=== PATIENT | male | born 1950 | race Caucasian/White ===

== ENCOUNTER 2020-03-07 14:21 | Outpatient (CLI) | payer MEDICARE, OTHER, SELFPAY ==
--- NOTE | 2020-03-07 15:00 | USCV_ITS ---
Pepe Morrow Age: 69 Gender: M : 1950 Exam Date: 03/07/2020 14:42 Ordering Phys: Kendrick Gabriel M.D ([email or web address]) Technologist: Von Addison [place] [facility] [facility] [place]ication: PROS AO COARCTATION REPAIR BP: 150 / 86 HR: 57 Rhythm: Sinus Technical Quality: Good MEASUREMENTS (Male / Female) Normal Values 2D ECHO LV Diastolic Diameter PLAX 3.5 cm 4.2 - 5.9 / 3.9 - 5.3 cm LV Systolic Diameter PLAX 2.1 cm IVS Diastolic Thickness 2.1 cm 0.6 - 1.0 / 0.6 - 0.9 cm IVS Systolic Thickness 1.6 cm LVPW Diastolic Thickness 1.4 cm 0.6 - 1.0 / 0.6 - 0.9 cm LVPW Systolic Thickness 1.7 cm LVOT Diameter 2.0 cm LV Ejection Fraction 2D Teich 71.7 % LA Diameter 3.1 cm LA Width 3.9 cm LA Height 4.4 cm RA Width 3.9 cm RA Height 3.7 cm Aorta at Sinotubular Diameter 1.0 cm M-MODE LV Diastolic Diameter MM 6.0 cm 4.2 - 5.9 / 3.9 - 5.3 cm LV Systolic Diameter MM 3.9 cm LV Ejection Fraction MM Teich 64.2 % IVS Diastolic Thickness MM 1.4 cm 0.6 - 1.0 / 0.6 - 0.9 cm IVS Systolic Thickness MM 1.7 cm LVPW Diastolic Thickness MM 1.4 cm 0.6 - 1.0 / 0.6 - 0.9 cm LVPW Systolic Thickness MM 2.0 cm RV Diastolic Diameter MM 1.4 cm MV E Point Septal Separation 1.1 cm DOPPLER AV Peak Velocity 225.0 cm/s LVOT Peak Velocity 103.0 cm/s AV Area Cont Eq vti 1.8 cm squared AV Area Cont Eq pk 1.5 cm squared MV Area PHT 5.0 cm squared Mitral E to A Ratio 0.7 MV E' Velocity 40.5 cm/s Mitral E to MV E' Ratio 10.0 Mitral E to LV E' Lateral Ratio 7.6 Mitral E to LV E' Septal Ratio 14.7 TR Peak Velocity 209.3 cm/s TR Peak Gradient 17.5 mmHg TV Peak E Velocity 93.0 cm/s Right Atrial Pressure 3.0 mmHg Pulmonary Artery Systolic Pressu 20.5 mmHg PV Peak Velocity 85.0 cm/s FINDINGS Left Ventricle Normal left ventricular size and systolic function. LVEF is 60 to 65%. No regional wall motion abnormalities are seen. Moderate left ventricular hypertrophy is noted. Grade 1 diastolic dysfunction is present. Right Ventricle The right ventricle is normal in size and function. Right Atrium The right atrium is normal in size. Left Atrium The left atrium is normal in size. Mitral Valve Structurally normal mitral valve without significant stenosis or prolapse. There is no mitral regurgitation. Aortic Valve Aortic valve is not well-visualized. Likely presence of mechanical valve. There is no aortic regurgitation. Peak gradient across the aortic valve of 20.2mmHg with mean gradient of 10.5mmHg. Peak gradient of 2.25m/s. DVI is normal with a value of 0.57. Tricuspid Valve Structurally normal tricuspid valve without significant stenosis. Mild tricuspid regurgitation is noted. RVSP is 20-25 mmHg. Pulmonic Valve Structurally normal pulmonic valve without significant stenosis. There is no pulmonic regurgitation. Pericardium Normal pericardium without effusion. Aorta Normal ascending aorta dimension. No significant stenosis is noted in the descending aorta with peak gradient of 5.8mmHg (patient with prior coarctation repair) CONCLUSIONS LV systolic function is normal with a EF of 60 to 65%. Grade 1 diastolic dysfunction is present. Likely mechanical aortic valve is noted. No significant stenosis or regurgitation is noted. DVI is normal with a value of 0.57. No significant stenosis noted in the descending aorta with peak gradient of 5.8 mmHg.(Patient with history of prior coarctation repair) Compared to prior study from 02/04/2019, no significant changes are noted. Kendrick Gabriel MD (Electronically Signed) Final Date: 11 March 2020 17:59 S
== END 2020-03-07 14:22 | disposition home or self-care (01) ==
LOC: RAD 14:26
PROVIDERS: PCP Internal Medicine; Visit Provider Internal Medicine
DX: I25.10 Atherosclerotic heart disease of native coronary artery without angina pectoris (principal); I51.81 Takotsubo syndrome
CPT/HCPCS: 93306

== ENCOUNTER 2021-07-18 09:50 | Emergency (ER) | payer MEDICARE, OTHER, SELFPAY ==
[2021-07-18 09:57] VITALS: BP 223/118; PULSE 59; RESP 15; TEMP 36.7; O2SAT 98; BMI 25.8
--- NOTE | 2021-07-18 10:15 | ED_ITS ---
HPI - General Adult General: Chief complaint: General Medical Stated complaint: Bloody nose and is on blood thinners Time Seen by Provider: 07/18/21 10:15 Source: patient Mode of arrival: ambulatory Limitations: no limitations History of Present Illness: 70-year-old male presents to the emergency room w ith epistaxis. Patient is on Coumadin for mechanical aortic valve. He last had his INR checked 2 months ago. He states that with epistaxis began last night around 10 AM is continued through the night. He states he has been swallowing the blood. He has a small amount of tissue stuffed into the right nare. He is on carvedilol and took his medication his blood pressure is significantly elevated but he is bradycardic. Denies any other symptoms no chest pain or shortness of breath. Onset (ago): hour(s) Relieving factors: none Exacerbating factors: none Associated symptoms: Deny chest pain, confusion, cough, diaphoresis, decreased appetite, dyspnea, fevers/chills, headache(s), malaise, nausea, rash, palpitations, seizures, short of breath, syncope, vomiting or weakness Treatments prior to arrival: none Review of Systems Const: Denies: malaise or diaphoresis Card: Denies: chest pain, palpitations or syncope Resp: Denies: dyspnea GI: Denies: nausea or vomiting Skin/Breast: Denies: rash Neuro: Denies: headache(s) or confusion PFS ED PFSH: Medical History History of hypertension Hx of aortic valve stenosis Hx of cardiac murmur Hx of carpal tunnel syndrome Hx of hyperlipidemia Surgical History History of carpal tunnel release of both wrists History of tonsillectomy and adenoidectomy Hx of aortic valve replacement Hx of spinal surgery Hx of vasectomy Family History Denies family history of Diabetes CAD (coronary artery disease) Cancer Hypertension Social History Smoking and tobacco status: never smoked Alcohol intake: current Alcohol intake frequency: 0-2 Drinks per Day Alcohol type: beer Lives independently: Yes Household members: spouse Marital status: Physical Exam Const: GENERAL APPEARANCE: cooperative and comfortable ORIENTATI ON/CONSCIOUSNESS: Yes awake, Yes oriented to person, Yes oriented to place and Yes oriented to time HENMT: COMMON NORMALS: normocephalic, atraumatic and hearing grossly normal bilaterally HEAD & SCALP: normocephalic and atraumatic NOSE: Other nasal findings present (No active bleeding from the right nare at the time of exam) Neck/C-Spine: COMMON NORMALS: no JVD Resp: COMMON NORMALS: normal respiratory effort, No retractions, No use of accessory muscles and clear to auscultation bilaterally AUSCULTATION: clear to auscultation bilaterally Cardio: COMMON NORMALS: no JVD, regular rate, regular rhythm and No murmurs present (Cardio) RATE: regular rate RHYTHM: regular rhythm GI: COMMON NORMALS: Soft to palpation and No hepatosplenomegaly present AUSCULTATION: Yes normoactive bowel sounds PALPATION: Yes Soft to palpation, No Tenderness to palpation present (GI), No Guarding due to palpation present (GI) and Yes No hepatosplenomegaly present Extremity: COMMON NORMALS: normal to inspection, capillary refill normal, no clubbing, cyanosis or edema, no calf tenderness and no pedal edema Neuro: SENSORIUM/ORIENTATION: Yes oriented to person, Yes oriented to place and Yes oriented to time Skin: COMMON NORMALS: no rashes or lesions noted GENERAL SKIN EXAM: no rashes or lesions noted Course Vital Signs: Vital signs: Vital Signs Temperature 98.0 F 07/18/21 09:57 Pulse Rate 54 L 07/18/21 10:31 Respiratory Rate 18 07/18/21 10:31 Blood Pressure 192/108 07/18/21 10:31 Pulse Oximetry 96 07/18/21 10:31 [facility] - General Adult Medical Decision Making Epistaxis resolved spontaneously we did give him 2 sprays in each nostril of oxymetazoline. He has not had any further bleeding. His hemoglobin is stable discharge him home and repeat him on Augmentin twice daily for 5 days mupirocin nasal swabs twice daily add amlodipine lisinopril for his blood pressure. Case management to set up follow-up with ENT. Medical Records I reviewed the patient's medical records. Lab Data I reviewed the patient's lab results. : 07/18/21 10:30 Laboratory Results WBC 5.4 10^3/uL (4.0-10.0) 07/18/21 10:30 RBC 5.13 10^6/uL (4.1-5.3) 07/18/21 10:30 Hgb 16.7 g/dL (11.7-16.6) H 07/18/21 10:30 Hct 49.7 % (42.0-52.0) 07/18/21 10:30 MCV 96.9 fl (80-94) H 07/18/21 10:30 MCH 32.6 pg (28.0-34.0) 07/18/21 10:30 MCHC 33.6 g/dL (30.0-36.0) 07/18/21 10:30 RDW 12.6 % (12.1-15.1) 07/18/21 10:30 Plt Count 142 10^3/cmm (130-400) 07/18/21 10:30 MPV 10.8 fL (7.4-10.4) H 07/18/21 10:30 Neut % (Auto) 57.9 % 07/18/21 10:30 Lymph % (Auto) 25.0 % 07/18/21 10:30 [place] % (Auto) 8.1 % 07/18/21 10:30 Eos % (Auto) 7.9 % 07/18/21 10:30 Baso % (Auto) 0.9 % 07/18/21 10:30 Neut # (Auto) 3.13 10^3/uL (1.8-7.7) 07/18/21 10:30 Lymph # (Auto) 1.4 10^3/uL (0.8-4.8) 07/18/21 10:30 [place] # (Auto) 0.4 10^3/uL (0.2-0.9) 07/18/21 10:30 Eos # (Auto) 0.4 10^3/uL (0.0-0.8) 07/18/21 10:30 Baso # (Auto) 0.1 10^3/uL (0.0-0.1) 07/18/21 10:30 Nucleated RBC % (auto) 0 % 07/18/21 10:30 Nucleated RBCs # 0.0 /100WBC 07/18/21 10:30 PT Cancelled 07/18/21 12:00 INR Cancelled 07/18/21 12:00 Discharge Plan Discharge Patient Disposition: Home Clinical Impression: Epistaxis, Hypertension, H/O mechanical aortic valve replacement Condition: Stable Prescriptions: New amlodipine 5 mg tablet 5 mg PO DAILY Qty: 30 0RF lisinopril 10 mg tablet 10 mg PO DAILY Qty: 30 0RF Augmentin 875-125 mg tablet 1 tab PO BID Qty: 10 0RF mupirocin 2 % ointment 1 applic topical BID Qty: 22 0RF Rx Instructions: apply to nares BID No Action lisinopril 40 mg tablet 40 mg PO DAILY 0RF aspirin [Adult Aspirin Regimen] 81 mg tablet,delayed release (DR/EC) 81 mg PO DAILY 0RF warfarin 1 mg tablet 1 mg PO DAILY 0RF Rx Instructions: Take as directed per INR results carvedilol [Coreg] 6.25 mg tablet 6.25 mg PO BID Qty: 60 6RF Rx Instructions: must administer with a meal/food hydrochlorothiazide 25 mg tablet 25 mg PO DAILY Qty: 90 3RF Discharge Orders: Discharge ED (Routine); Ordered 07/18/21 Ordered By: Blair Bolanos Referrals: Sukh Mendez DO [Primary Care Provider] - Discharge Diet: Usual diet Discharge Activity: Limit activity as instructed Patient Instructions: Opioid Safety Activity Restrictions/Additional Instructions: Continue previously prescribed blood pressure medications. Oral antibiotic x5 days nasal saline spray 2-3 times a day mupirocin in the nares twice a day. Case management will call make arrangements for you to see ENT Coding Level of Care Code ED Senior Ios Software Engineer for Isaac Fwd Exam Comprehensive
[2021-07-18 10:31] VITALS: BP 192/108; PULSE 54; RESP 18; O2SAT 96
[2021-07-18 10:46] LABS: Basophils # 0.1 10^3/uL (0.0-0.1); Basophils % 0.9 %; Eosinophils # 0.4 10^3/uL (0.0-0.8); Eosinophils % 7.9 %; Hematocrit 49.7 % (42.0-52.0); Hemoglobin 16.7 g/dL (11.7-16.6); Lymphocytes # 1.4 10^3/uL (0.8-4.8); Mean Corpuscular HGB Conc 33.6 g/dL (30.0-36.0); Mean Corpuscular Hemoglobin 32.6 pg (28.0-34.0); Mean Corpuscular Volume 96.9 fl (80-94); Mean Platelet Volume 10.8 fL (7.4-10.4); Monocytes # 0.4 10^3/uL (0.2-0.9); Monocytes % 8.1 %; Neutrophils # 3.13 10^3/uL (1.8-7.7); Neutrophils % 57.9 %; Nucleated Red Blood Cells % 0 %; Platelet Count 142 10^3/cmm (130-400); Red Blood Count 5.13 10^6/uL (4.1-5.3); Red Cell Distribution Width 12.6 % (12.1-15.1); White Blood Count 5.4 10^3/uL (4.0-10.0)
[2021-07-18] MEDS: oxymetazoline 0.05% Nasal Spray 15 mL 2 SPRAY NOSTRIL-B (11:14)
[2021-07-18] MEDS: amlodipine 10 mg Tablet PO (11:16)
[2021-07-18] MEDS: saline nasal spray 44mL Btl 1 SPRAY NASAL (11:16)
[2021-07-18] MEDS: hyDRALAzine 20 mg/mL INJ 1 mL IVP (11:25)
--- NOTE | 2021-07-18 12:17 | PC.NURSE ---
Reviewed all dc instr.including new meds, FU instructions & s/s to report. Pt ambulated from room. Spouse received all instructions.
--- NOTE | 2021-07-19 13:10 | DCPLANNER ---
Addendum entered by Kimber Hargrove 08/07/21 08:00: Patient had an appointment scheduled with ENT - appointment was cancelled. Original Note: resident services manager had message to schedule a follow up appointment for patient with ENT. resident services manager emailed patients information to Julianna Good and Hannah at [facility] General Surgery / ENT clinic. Patients information will be printed and reviewed. Clinic will call patient with appointment information.
== END 2021-07-18 12:15 | disposition home or self-care (01) ==
PROVIDERS: Emergency Provider Family Medicine; PCP Internal Medicine
DX: R04.0 Epistaxis (principal); I10 Essential (primary) hypertension; Z95.2 Presence of prosthetic heart valve; Z79.01 Long term (current) use of anticoagulants; Z79.82 Long term (current) use of aspirin; E78.5 Hyperlipidemia, unspecified
CPT/HCPCS: 36415; 85025; 96374; 99283; J0360

== ENCOUNTER → 2021-08-31 09:54 | Outpatient (BNVA) | payer MEDICARE, OTHER, SELFPAY | PROVIDERS: PCP Internal Medicine; Visit Provider Internal Medicine | DX: I25.10 Atherosclerotic heart disease of native coronary artery without angina pectoris (principal); Z87.74 Personal history of (corrected) congenital malformations of heart and circulatory system; I10 Essential (primary) hypertension; Q25.1 Coarctation of aorta; Z95.2 Presence of prosthetic heart valve; Z79.01 Long term (current) use of anticoagulants | CPT/HCPCS: 99214 ==

== ENCOUNTER 2021-12-20 07:32 | Outpatient (CLI) | payer MEDICARE, OTHER, SELFPAY ==
--- NOTE | 2021-12-20 07:45 | USCV_ITS ---
Pepe Morrow Age: 71 Gender: M : 1950 Exam Date: 12/20/2021 07:41 Ordering Phys: Kendrick Gabriel M.D ([email or web address]) Technologist: Von Addison Exam Location: [facility] [place] Indication: st wolf a prostetic valve hx of corarctation of aorta repair BP: 130 / 80 HR: 67 Rhythm: Sinus Technical Quality: MEASUREMENTS (Male / Female) Normal Values 2D ECHO LV Diastolic Diameter PLAX 5.2 cm 4.2 - 5.9 / 3.9 - 5.3 cm LV Systolic Diameter PLAX 2.8 cm IVS Diastolic Thickness 1.1 cm 0.6 - 1.0 / 0.6 - 0.9 cm IVS Systolic Thickness 1.5 cm LVPW Diastolic Thickness 1.3 cm 0.6 - 1.0 / 0.6 - 0.9 cm LVPW Systolic Thickness 1.7 cm LVOT Diameter 2.0 cm LV Ejection Fraction 2D Teich 78.0 % LA Diameter 4.7 cm Aorta at Sinotubular Diameter 2.9 cm IVC Diameter 1.9 cm M-MODE LV Diastolic Diameter MM 6.0 cm 4.2 - 5.9 / 3.9 - 5.3 cm LV Systolic Diameter MM 3.8 cm LV Ejection Fraction MM Teich 64.7 % IVS Diastolic Thickness MM 1.3 cm 0.6 - 1.0 / 0.6 - 0.9 cm IVS Systolic Thickness MM 1.7 cm LVPW Diastolic Thickness MM 1.1 cm 0.6 - 1.0 / 0.6 - 0.9 cm LVPW Systolic Thickness MM 1.8 cm RV Diastolic Diameter MM 1.7 cm MV E Point Septal Separation 1.4 cm DOPPLER AV Peak Velocity 248.0 cm/s LVOT Peak Velocity 93.0 cm/s AV Area Cont Eq vti 1.4 cm squared AV Area Cont Eq pk 1.2 cm squared MV Area PHT 5.0 cm squared Mitral E to A Ratio 0.9 MV E' Velocity 49.0 cm/s Mitral E to MV E' Ratio 10.4 Mitral E to LV E' Lateral Ratio 8.0 Mitral E to LV E' Septal Ratio 14.9 TR Peak Velocity 288.3 cm/s TR Peak Gradient 33.2 mmHg TV Peak E Velocity 113.0 cm/s Right Atrial Pressure 3.0 mmHg Pulmonary Artery Systolic Pressu 36.2 mmHg PV Peak Velocity 93.0 cm/s FINDINGS Left Ventricle Normal left ventricular size. LV systolic function is normal with EF of 55-60%. No regional wall motion abnormality seen. Moderate left ventricular hypertrophy is seen. Right Ventricle The right ventricle is normal in size and function. Right Atrium The right atrium is normal in size. Left Atrium The left atrium is normal in size. Mitral Valve Structurally normal mitral valve without significant stenosis or prolapse. There is mild mitral regurgitation. Aortic Valve Possibly mechanical aortic valve. Mild aortic stenosis. Mean gradient across aortic valve is 11 mmHg and aortic valve area is 1.36 cm squared. Mild aortic regurgitation Tricuspid Valve Mild tricuspid regurgitation. Pulmonary artery systolic pressure is normal Pulmonic Valve Not well-visualized Pericardium Normal pericardium without effusion. Aorta Normal ascending aorta dimension. No significant recoarctation IVC CONCLUSIONS LV systolic function is normal with EF 55 to 60%. Moderate left ventricular hypertrophy is seen. Mild mitral regurgitation noted. Possibly mechanical aortic valve. Mild aortic stenosis seen. Mild aortic regurgitation. Mild tricuspid regurgitation. Compared to prior echocardiogram from 2019, no significant changes are seen. Kendrick Gabriel MD (Electronically Signed) Final Date: 02 January 2022 18:56 S
== END 2021-12-20 07:33 | disposition home or self-care (01) ==
PROVIDERS: PCP Internal Medicine; Visit Provider Internal Medicine
DX: Q25.1 Coarctation of aorta (principal); I08.3 Combined rheumatic disorders of mitral, aortic and tricuspid valves
CPT/HCPCS: 93306

== ENCOUNTER → 2022-03-08 10:31 | Outpatient (BNVA) | payer MEDICARE, OTHER, SELFPAY | PROVIDERS: PCP Internal Medicine; Visit Provider Internal Medicine | DX: I25.10 Atherosclerotic heart disease of native coronary artery without angina pectoris (principal); Z87.74 Personal history of (corrected) congenital malformations of heart and circulatory system; I10 Essential (primary) hypertension; Z95.2 Presence of prosthetic heart valve | CPT/HCPCS: 99213; 99214 ==

== ENCOUNTER 2022-08-17 20:20 | Emergency (ER) | payer MEDICARE, OTHER, SELFPAY ==
[2022-08-17] VITALS (12 sets, daily range): BP systolic 121–201; BP diastolic 75–94; PULSE 56–67; RESP 13–22; TEMP 36.7; O2SAT 94–100; BMI 25.8
--- NOTE | 2022-08-17 20:25 | ECG_ITS ---
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: : 1950 Requested By: Jacob Avendaño Order Number: [id number] Reading MD: OSMAR MONTERO Measurements Intervals [place] Rate: 61 P: 55 FL: 193 QRS: -76 QRSD: 186 T: 29 QT: 469 QTc: 474 Interpretive Statements SINUS RHYTHM POSSIBLE LEFT ATRIAL ENLARGEMENT [-0.1mV P-WAVE IN V1/V2] RIGHT BUNDLE BRANCH BLOCK [120+ ms QRS DURATION, UPRIGHT V1, 40+ ms S IN I/aVL/V4/V5/V6] LEFT ANTERIOR FASCICULAR BLOCK [QRS AXIS <= -45, QR IN I, RS IN II] LEFT VENTRICULAR HYPERTROPHY AND ST-T CHANGE [VOLTAGE CRITERIA PLUS ST/T ABNORMALITY] No previous ECG available for comparison Electronically Signed On 08-19-2022 3:07:45 CDT by OSMAR MONTERO [id number]
--- NOTE | 2022-08-17 21:06 | XRR_ITS ---
PROCEDURE INFORMATION: Exam: XR Chest Exam date and time: 08/17/2022 9:09 PM Age: 71 years old Clinical indication: Pain; Left-sided; Prior surgery; Surgery type: Aorta; Additional info: Cp TECHNIQUE: Imaging protocol: Radiologic exam of the chest. Views: 1 view. COMPARISON: No relevant prior studies available. FINDINGS: Tubes, catheters and devices: There are sternal wires consistent with previous sternotomy incision. Lungs: There is no pulmonary venous congestion. Pleural spaces: Unremarkable. No pleural effusion. No pneumothorax. Heart/Mediastinum: There is a prosthetic aortic valve. Heart is within normal limits of size. Vasculature: There is ectasia of the aortic arch and a tortuous descending thoracic aorta. Bones/joints: Unremarkable. XR/XR chest 1V portable [id number] IMPRESSION: 1. No acute infiltrate 2. Tortuous and ectatic aorta.
[2022-08-17] MEDS: ondansetron 2 mg/ML SDV 2 mL 4 MG IVP (21:22)
[2022-08-17] MEDS: fentaNYL 50 mcg/mL INJ 2mL 25 MCG IVP (21:22)
[2022-08-17 21:47] LABS: Basophils # 0.1 10^3/uL (0.0-0.1); Basophils % 0.9 %; Eosinophils # 0.4 10^3/uL (0.0-0.8); Eosinophils % 7.6 %; Hematocrit 46.1 % (42.0-52.0); Hemoglobin 15.3 g/dL (11.7-16.6); Lymphocytes # 1.1 10^3/uL (0.8-4.8); Lymphocytes % 19.7 %; Mean Corpuscular HGB Conc 33.2 g/dL (30.0-36.0); Mean Corpuscular Hemoglobin 31.5 pg (28.0-34.0); Mean Corpuscular Volume 95.1 fl (80-94); Mean Platelet Volume 10.3 fL (7.4-10.4); Monocytes # 0.6 10^3/uL (0.2-0.9); Monocytes % 11.4 %; Neutrophils % 60.4 %; Nucleated Red Blood Cells % 0 %; Platelet Count 140 10^3/cmm (130-400); Red Blood Count 4.85 10^6/uL (4.1-5.3); Red Cell Distribution Width 12.4 % (12.1-15.1); White Blood Count 5.6 10^3/uL (4.0-10.0)
--- NOTE | 2022-08-17 21:48 | ED_ITS ---
HPI - Chest Pain General: Chief Complaint: Chest Pain Stated Complaint: left side pain / left arm pain Time Seen by Provider: 08/17/22 20:48 History of Present Illness: 71-year-old male with a history of coarctation of the aorta repaired with an artificial valve placement in his teens. No coronary disease history. He presents with left shoulder, left-sided chest discomfort that started prior to arrival. He was at rest when it started. He has not had pain like this before. He has had left shoulder pain that comes and goes, but believes this pain is somewhat different. He is mildly short of breath. He does not hurt worse to take a deep breath in. No long car trips. He is chronically anticoagulated for his valve. No leg swelling MD complaint: chest pain and other Pertinent past history: other Onset (ago): hour(s) Timing of current episode: constant Prior episodes: No Onset: during rest Pain location: left chest Pain radiation: left arm Severity: moderate Quality: aching Relieving factors: nothing Exacerbating factors: nothing Associated symptoms: Deny abdominal pain, dyspnea, fever(s), nausea, palpit ations or vomiting Review of Systems Const: Denies: fever(s) ENMT: Denies: throat pain Card: Denies: palpitations Resp: Denies: dyspnea GI: Denies: abdominal pain, nausea or vomiting : Denies: flank pain Musc: Denies: neck pain Skin/Breast: Denies: rash Neuro: Denies: headache(s) PFSH ED PFSH: Medical History History of hypertension Hx of aortic valve stenosis Hx of cardiac murmur Hx of carpal tunnel syndrome Hx of hyperlipidemia Surgical History History of carpal tunnel release of both wrists History of tonsillectomy and adenoidectomy Hx of aortic valve replacement Hx of spinal surgery Hx of vasectomy Family History Denies family history of Diabetes CAD (coronary artery disease) Cancer Hypertension Social History Smoking and tobacco status: never smoked Alcohol intake: current Alcohol intake frequency: 0-2 Drinks per Day Alcohol t ype: beer Lives independently: Yes Household members: spouse Marital status: Physical Exam Const: COMMON NORMALS: no acute distress GENERAL APPEARANCE: cooperative; not ill appearing and not frail appearing HENMT: COMMON NORMALS: normocephalic, atraumatic and Normal external nose present HEAD & SCALP: normocephalic and atraumatic FACE & SINUS: normal facial exam and face symmetric NOSE: Normal external nose present Eye: COMMON NORMALS: Equal, round and reactive pupils present and EOMs intact bilaterally PUPIL: Yes Equal, round and reactive pupils present Neck/C-Spine: GENERAL: Yes trachea midline Chest: CHEST: Yes Symmetrical chest wall rise Resp: COMMON NORMALS: normal respiratory effort, No retractions, No use of accessory muscles and clear to auscultation bilaterally AUSCULTATION: clear to auscultation bilaterally Cardio: COMMON NORMALS: regular rate and regular rhythm RATE: regular rate RHYTHM: regular rhythm HEART SOUNDS: Clicking heart sound present GI: COMMON NORMALS: Normal to inspection, nondistended, normoactive bowel sounds present Extremity: COMMON NORMALS: no pedal edema Neuro: DEVONTE COMA SCALE: document GCS findings [place] coma scale eye opening: Spontaneous [place] coma scale verbal response: Orientated [place] coma scale motor response: Obey commands [place] coma scale total score: 15 SENSORY EXAM: Yes extremities (intact) Psych: COMMON NORMALS: speech normal SPEECH: Yes normal speech Skin: COMMON NORMALS: no rashes or lesions noted GENERAL SKIN EXAM: no rashes or lesions noted Course Vital Signs: Vital signs: Vital Signs Temperature 98.0 F 08/17/22 20:34 Pulse Rate 80 08/18/22 00:24 Respiratory Rate 18 08/18/22 00:24 Blood Pressure 143/81 08/18/22 00:24 Pulse Oximetry 98 08/18/22 00:24 Oxygen Delivery Me thod 08/17/22 21:23 [facility] - Chest Pain Medical Decision Making Patient with atypical presentation of chest discomfort. Pain is to his left shoulder, left axilla and down his left arm. He was hypertensive on arrival, but vitals have stabilized. He does not have a coronary disease history. He does have a history of valvular repair. Chest x-ray is negative. The aorta is ectatic and tortuous on appearance, but this is stable from a chest x-ray from 2011. His CBC is normal. He is fully anticoagulated given his valve with a INR of 3.59. His delta troponin is negative. EKG shows a sinus rhythm with right bundle branch and left anterior fascicular blocks. No acute ST wave changes. His pain is improved. He has walked in the ER without increase in pain. He was offered CTA of the chest given his history of chest surgery and hypertension to rule out unlikely aortic dissection, but the patient adamantly declined. He will be allowed discharge. Lab Data 08/17/22 21:30 08/17/22 21: Radiology Impressions Chest X-Ray 08/17/22 21:06 IMPRESSION: 1. No acute infiltrate 2. Tortuous and ectatic aorta. Laboratory Results WBC 5.6 10^3/uL (4.0-10.0) 08/17/22 21: RBC 4.85 10^6/uL (4.1-5.3) 08/17/22: Hgb 15.3 g/dL (11.7-16.6) 08/17/22: Hct 46.1 % (42.0-52.0) 08/17/22: MCV 95.1 fl (80-94) H 08/17/22: MCH 31.5 pg (28.0-34.0) 08/17/22 21: MCHC 33.2 g/dL (30.0-36.0) 08/17/22 21: RDW 12.4 % (12.1-15.1) 08/17/22: Plt Count 140 10^3/cmm (130-400) 08/17/22 21: MPV 10.3 fL (7.4-10.4) 08/17/22 21: Neut % (Auto) 60.4 % 08/17/22: Lymph % (Auto) 19.7 % 08/17/22: [place] % (Auto) 11.4 % 08/17/22 21: Eos % (Auto) 7.6 % 08/17/22: Baso % (Auto) 0.9 % 08/17/22: Neut # (Auto) 3.40 10^3/uL (1.8-7.7) 08/17/22 21:30 Lymph # (Auto) 1.1 10^3/uL (0.8-4.8) 08/17/22 21:30 [place] # (Auto) 0.6 10^3/uL (0.2-0.9) 08/17/22 21:30 Eos # (Auto) 0.4 10^3/uL (0.0-0.8) 08/17/22 21: Baso # (Auto) 0.1 10^3/uL (0.0-0.1) 08/17/22 21: Nucleated RBC % (auto) 0 % 08/17/22 21: Nucleated RBCs # 0.0 /100WBC 08/17/22 21: PT 37.20 SECONDS (12.1-14.9) H 08/17/22 21: INR 3.59 (0.8-1.2) H 08/17/22 21:30 Sodium 133 mmol/L (136-145) L 08/17/22: Potassium 4.0 mmol/L (3.5-5.1) 08/17/22 21: Chloride 93 mmol/L (98-107) L 08/17/22: Carbon Dioxide 30 mmol/L (22-29) H 08/17/22: Anion Gap 14.0 (5-19) 08/17/22 21:30 BUN 9 mg/dL (8-23) 08/17/22 21: Creatinine 0.7 mg/dL (0.7-1.2) 08/17/22: GFR Calculation Not Reportable 08/17/22: Glucose 96 mg/dL (65-115) 08/17/22 21: Calculated Osmolality 275 mOsm/kg (285-295) L 08/17/22: Calcium 9.6 mg/dL (8.5-10.5) 08/17/22: Total Bilirubin 1.3 mg/dL (0.15-1.2) H 08/17/22 21:30 AST 32 U/L (0-40) 08/17/22 21: ALT 24 U/L (0-41) 08/17/22 21: Alkaline Phosphatase 63 U/L (40-130) 08/17/22 21:30 Troponin T Baseline 14 ng/L (0-15) 08/17/22 21:30 Troponin T 120 Minute 14.27 ng/L (0-15) 08/17/22 23:25 Delta Troponin T 0.27 ABS# (0-10) 08/17/22 23:25 NT-Pro-B Natriuret Pep 183 pg/mL (0-125) H 08/17/22 21:30 Total Protein 7.0 g/dL (6.6-8.7) 08/17/22 21:30 Albumin 4.4 g/dL (3.5-5.2) 08/17/22 21:30 Globulin 2.6 g/dL (1.3-4.6) 08/17/22 21:30 Discharge Plan Discharge Patient Disposition: Home Clinical Impression: Atypical chest pain Condition: Stable Prescriptions: No Action lisinopril 40 mg tablet 40 mg PO DAILY aspirin [Adult Aspirin Regimen] 81 mg tablet,delayed release (DR/EC) 81 mg PO DAILY warfarin 1 mg tablet 1 mg PO DAILY Rx Instructions: Take as directed per INR results carvedilol [Coreg] 6.25 mg tablet 6.25 mg PO BID Qty: 90 3RF Rx Instructions: must administer with a meal/food hydrochlorothiazide 25 mg tablet 25 mg PO DAILY Qty: 90 3RF mupirocin 2 % ointment 1 applic topical BID Qty: 22 0RF Rx Instructions: apply to nares BID Discharge Orders: Discharge ED (Routine); Ordered 08/18/22 Ordered By: Fei Harrison Referrals: Sukh Mendez DO [Primary Care Provider] - 1-3 days Patient Instructions: Chest Pain (ED) Activity Restrictions/Additional Instructions: Return for worsening pain, development of shortness of breath, fever, cough, any other concerning symptoms. See your doctor this week. Watch your blood pressure closely. Coding Level of Care Code ED Digital Marketer for Isaac Mason
[2022-08-17 21:59] LABS: INR 3.59 (0.8-1.2)
[2022-08-17 22:07] LABS: Troponin(5th) Baseline 14 ng/L (0-15)
[2022-08-17 22:15] LABS: Alanine Aminotransferase 24 U/L (0-41); Albumin Level 4.4 g/dL (3.5-5.2); Alkaline Phosphatase 63 U/L (40-130); Aspartate Amino Transferase 32 U/L (0-40); Blood Urea Nitrogen 9 mg/dL (8-23); Calcium 9.6 mg/dL (8.5-10.5); Carbon Dioxide 30 mmol/L (22-29); Chloride 93 mmol/L (98-107); Globulin 2.6 g/dL (1.3-4.6); Glucose 96 mg/dL (65-115); NT Pro B Type Natriuretic Pept 183 pg/mL (0-125); Osmolality Calculated 275 mOsm/kg (285-295); Sodium 133 mmol/L (136-145); Total Bilirubin 1.3 mg/dL (0.15-1.2)
[2022-08-17] MEDS: nitroglycerin 0.4 mg sublingual Tablet SUBLINGUAL (22:33)
[2022-08-17] MEDS: nitroglycerin 1 gm/inch oint Pkt 1 INCH TOPICAL (22:33)
[2022-08-17 23:46] LABS: Troponin 5 2HR 14.27 ng/L (0-15)
[2022-08-18] VITALS: PULSE 54; RESP 13; O2SAT 98
[2022-08-18 00:03] LABS: Troponin 5 2HR Delta 0.27 ABS# (0-10)
[2022-08-18 00:15] VITALS: BP 143/81
[2022-08-18 00:24] VITALS: BP 143/81; PULSE 80; RESP 18; O2SAT 98
[2022-08-18] MEDS: ketorolac 30 mg/mL INJ 15 MG IVP (00:27)
== END 2022-08-18 00:27 | disposition home or self-care (01) ==
PROVIDERS: Emergency Provider Emergency Medicine; PCP Internal Medicine
DX: R07.89 Other chest pain (principal); I10 Essential (primary) hypertension; I45.2 Bifascicular block; Z79.82 Long term (current) use of aspirin; Z79.01 Long term (current) use of anticoagulants; Z95.2 Presence of prosthetic heart valve
CPT/HCPCS: 71045; 80053; 83880; 84484; 85025; 85610; 93005; 96374; 96375; 99285; J1885; J2405; J3010

== ENCOUNTER → 2022-09-13 10:21 | Outpatient (BNVA) | payer MEDICARE, OTHER, SELFPAY | PROVIDERS: PCP Internal Medicine; Visit Provider Internal Medicine | DX: I25.10 Atherosclerotic heart disease of native coronary artery without angina pectoris (principal); Z87.74 Personal history of (corrected) congenital malformations of heart and circulatory system; I10 Essential (primary) hypertension; Z95.2 Presence of prosthetic heart valve; Z79.82 Long term (current) use of aspirin; Z79.01 Long term (current) use of anticoagulants | CPT/HCPCS: 99214 ==

== ENCOUNTER 2022-10-09 12:31 | Outpatient (CLI) | payer MEDICARE, OTHER, SELFPAY ==
--- NOTE | 2022-10-09 13:15 | USCV_ITS ---
Cristhian Pepe Age: 72 Gender: M : 1950 Exam Date: 10/09/2022 13:35 Ordering Phys: Kendrick Gabriel M.D ([email or web address]) Technologist: Ramses Galloway [place] [facility] [place]: chest pain, sob BP: 140 / 70 HR: 54 Rhythm: Sinus Technical Quality: Adequate MEASUREMENTS (Male / Female) Normal Values 2D ECHO LVOT Diameter 2.0 cm LV Ejection Fraction MOD 2C 67.9 % LV Ejection Fraction 2C AL 67.3 % LA Diameter 3.4 cm LA Width 3.0 cm LA Height 4.3 cm RA Width 3.5 cm RA Height 4.8 cm Aorta at Sinotubular Diameter 2.0 cm IVC Diameter 1.6 cm M-MODE Aortic Annulus Diameter 2.1 cm LA Ao Ratio MM 1.5 MV E Point Septal Separation 0.8 cm DOPPLER AV Peak Velocity 277.7 cm/s LVOT Peak Velocity 114.0 cm/s AV Area Cont Eq vti 1.5 cm squared AV Area Cont Eq pk 1.3 cm squared MV Peak Velocity 129.0 cm/s MV Area PHT 3.6 cm squared Mitral E to A Ratio 0.7 MV E' Velocity 32.5 cm/s Mitral E to MV E' Ratio 8.5 Mitral E to LV E' Lateral Ratio 7.3 Mitral E to LV E' Septal Ratio 10.4 TR Peak Velocity 267.4 cm/s TR Peak Gradient 28.6 mmHg TR Mean Velocity 193.2 cm/s TR Mean Gradient 16.2 mmHg TR Velocity Time Integral 58.0 cm Right Atrial Pressure 3.0 mmHg Pulmonary Artery Systolic Pressu 31.6 mmHg PV Peak Velocity 66.0 cm/s RV Acceleration Time 0.1 s RV Ejection Time 0.2 s RV AcT/ET 0.3 FINDINGS Left Ventricle Left ventricle is normal size. LV systolic function is normal with EF of 60 to 65%. No regional wall motion abnormalities are seen. Grade 1 diastolic dysfunction Right Ventricle Normal in size and function Right Atrium Normal in size Left Atrium Normal in size Mitral Valve Structurally normal mitral valve. Mild mitral regurgitation. Aortic Valve Aortic valve is thickened. Mild aortic stenosis with aortic valve area of 1.43 cm squared and mean gradient across aortic valve of 13 mmHg. Moderate aortic regurgitation. Tricuspid Valve Mild tricuspid regurgitation. RVSP 30 to 35 mmHg. Pulmonic Valve Not well visualized. Pericardium Normal Aorta Normal in size IVC Appears to be normal. CONCLUSIONS LV systolic function is normal with EF of 60 to 65% Grade 1 diastolic dysfunction Mild mitral regurgitation Mild aortic stenosis. Moderate aortic regurgitation Mild tricuspid regurgitation Compared to prior echocardiogram from 11/2021, no significant changes are seen Kendrick Gabriel MD (Electronically Signed) Final Date: 19 Oct 2022 13:29 S
== END 2022-10-09 12:32 | disposition home or self-care (01) ==
LOC: RAD 12:36
PROVIDERS: PCP Internal Medicine; Visit Provider Internal Medicine
DX: R07.9 Chest pain, unspecified (principal); R06.02 Shortness of breath
CPT/HCPCS: 93306

== ENCOUNTER 2022-10-15 06:39 | Outpatient (CLI) | payer MEDICARE, OTHER, SELFPAY ==
[2022-10-15 07:36] VITALS: BMI 26.6
--- NOTE | 2022-10-15 07:39 | ECG_ITS ---
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 Interpretive Statements NAME OF STUDY: EXERCISE SESTAMIBI STRESS TEST INDICATION: [Chest Pain; Shortness of Breath, ] EXERCISE DATA: The patient was exercised by Gagan protocol. Baseline heart rate was 71 beats per minute. Baseline blood pressure was 158/96 millimeters of mercury. Target heart rate was 125 beats per minute. Maximum heart rate achieved was 144 which was 115% of the target heart rate. Maximum blood pressure was 217/113 millimeters of mercury. Total exercise time was 8 minutes. Maximum METs achieved was 10.2. The reason for ending the test was maximal effort achieved. The patient complained of shortness of breath during the stress test, which then resolved at the end of the test. ELECTROCARDIOGRAM: BASELINE: Showed sinus rhythm, right bundle branch block, frequent PVCs. EXERCISE: At the peak exercise level, [] No significant ST-T changes suggestive of ischemia noted. [] RECOVERY: During the recovery period, heart rate dropped appropriately. No significant ST-T changes in the recovery suggestive of ischemia noted. [] CONCLUSION: 1. Exercise capacity is good. 2. Heart rate response was appropriate. 3. Blood pressure response was hypertensive. 4. Symptoms not suggestive of ischemia. 5. Electrocardiogram portion of the stress test was not suggestive of ischemia. 6. Nuclear scan will be documented separately. Electronically Signed On 10-19-2022 21:58:32 CDT by Kendrick Gabriel M.D. [id number]
--- NOTE | 2022-10-15 07:39 | NMCV_ITS ---
NM sherin perf SPECT r/s* [id number] Pepe Morrow Age: 72 Gender: M : 1950 Exam Date: 10/15/2022 07:45 Ordering Phys: Kendrick Gabriel M.D ([email or web address]) Technologist: ZIGGY Mandujano Exam Location: [facility] Indications: CHEST PAIN, SHORTNESS OF BREATH STRESS TEST Please see separate stress test report in Eph[facility]any for full findings IMAGE PROTOCOL Rest/Stress 1 Exercise Day Radiopharmaceutical Dose (mCi) Administration Site Administered by Rest: Tc-99m 10.4 IV ZIGGY Hess Sestamibi Stress:Tc-99m 32.4 IV ZIGGY Hess Sestamiartem Rest: 15-Oct-2022 60 Discovery 630 Stress: 15-Oct-2022 30 Discovery 630 Radiopharmaceutical was injected at 97 % maximum heart rate. Images obtained in supine and prone position. SPECT RESULTS Technical Quality: Excellent Raw Data Analysis: Normal Image Corrections: No attenuation or motion correction applied Summed Stress Score: 2 Summed Rest Score: 8 Summed Difference Score: 0 PERFUSION FINDINGS There is a small in size, fixed perfusion defect noted in lateral wall. 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 No evidence of ischemia FUNCTIONAL RESULTS (calculated via Gated SPECT) Stress Image LV EF (%): 65 Stress EDV (mL):93 TID: 0.8 Stress ESV (mL):33 FUNCTIONAL FINDINGS: There is normal left ventricular systolic function. IMPRESSIONS 1. 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 No evidence of ischemia. 2. LV systolic function is normal. Kendrick Gabriel MD (Electronically Signed) Final Date: 17 Oct 2022 12:24 S
[2022-10-15 08:36] VITALS: BP 158/101; PULSE 95
== END 2022-10-15 06:40 | disposition home or self-care (01) ==
LOC: CDL 06:41
PROVIDERS: PCP Internal Medicine; Visit Provider Internal Medicine
DX: R07.9 Chest pain, unspecified (principal); R06.02 Shortness of breath
CPT/HCPCS: 36415; 78452; 93017; A9500

== ENCOUNTER 2023-03-07 11:53 | Emergency (ER) | payer MEDICARE, OTHER, SELFPAY ==
--- NOTE | 2023-03-07 11:57 | ECG_ITS ---
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 Measurements Intervals [place] Rate: 50 P: 24 SD: 197 QRS: -68 QRSD: 181 T: -14 QT: 483 QTc: 442 Interpretive Statements SINUS BRADYCARDIA POSSIBLE LEFT ATRIAL ENLARGEMENT [-0.1mV P-WAVE IN V1/V2] RIGHT BUNDLE BRANCH BLOCK LEFT ANTERIOR FASCICULAR BLOCK [QRS AXIS <= -45, QR IN I, RS IN II] POSSIBLE LEFT VENTRICULAR HYPERTROPHY [VOLTAGE CRITERIA PLUS LAE OR QRS WIDENING] POSSIBLE SEPTAL MYOCARDIAL INFARCTION , PROBABLY OLD [30 ms Q WAVE IN V1/V2] MODERATE T-WAVE ABNORMALITY, CONSIDER LATERAL ISCHEMIA Compared to ECG 08/17/2022 20:25:22 Myocardial infarct finding now present T-wave abnormality now present Possible ischemia now present ST (T wave) deviation no longer present Electronically Signed On 03-07-2023 13:31:22 CDT by Elidia Tamez M.D. [id number]
[2023-03-07 12:03] VITALS: BP 128/79; PULSE 53; RESP 16; TEMP 36.6; O2SAT 97; BMI 26.6
--- NOTE | 2023-03-07 13:12 | ED_ITS ---
HPI - Chest Pain General: Chief Complaint: Chest Pain Stated Complaint: chest pain Time Seen by Provider: 03/07/23 13:06 Source: patient Mode of arrival: ambulatory History of Present Illness: 72-year-old male presents emergency room with complaints of intermittent low- grade chest pain for the last 3 weeks. Earlier this year patient had an episode of chest pain he is evaluated in emergency room troponins were negative CT was o ffered he declined set up an outpatient stress test which did not show any acute ischemia but showed a small area of decreased uptake reflective of a prior infarct in the distribution of the circumflex artery. He was scheduled to see Dr. Alicea but has not yet seen him over the last 3 weeks he has intermittently had chest pain interestingly he states chest pain is not affected by exercise. He regularly splits wood using a hydraulic wood splitter does not swing asked but when he is doing this and exerting himself he does not had any chest pain. He states most of the discomfort occurs at night while he is at rest usually late in the evening around 2 AM. It has woken him up from sleep we will feel left-sided chest pain epigastric pain radiating to his left shoulder and arm. It resolved spontaneously. He has not really taken anything for it. He does take aspirin daily he is also on carvedilol lisinopril and hydrochlorothiazide. He previously had an arctic valve replacement and is on warfarin. MD complaint: chest pain Pertinent past history: coronary artery disease Onset (ago): minute(s) Timing of current episode: episodic Prior episodes: Yes Onset: during rest Pain location: substernal and left chest Pain radiation: left arm Severity: mild Quality: aching and heaviness Relieving factors: nothing Exacerbating factors: nothing Associated symptoms: Deny abdominal pain, diaphoresis, dyspnea, fever(s), leg edema, nausea, palpitations, sense of impending doom, syncope, vomiting or other Treatment prior to arrival: none Review of Systems Const: Denies: fever(s), chills, fatigue, malaise or diaphoresis ENMT: Denies: throat pain, ear or mastoid pain, nasal discharge or nasal congestion Card: Reports: chest pain; Denies: palpitations or syncope Resp: Denies: dyspnea, productive cough or non-productive cough GI: Denies: abdominal pain, nausea or vomiting : Denies: flank pain, dysuria, urinary frequency or urinary urgency Musc: Denies: neck pain or back pain Skin/Breast: Denies: rash or pruritus PFSH ED PFSH: Medical History History of hypertension Hx of aortic valve stenosis Hx of cardiac murmur Hx of carpal tunnel syndrome Hx of hyperlipidemia Surgical History History of carpal tunnel release of both wrists History of tonsillectomy and adenoidectomy Hx of aortic valve replacement Hx of spinal surgery Hx of vasectomy Family History Denies family history of Diabetes CAD (coronary artery disease) Cancer Hypertension Social History Smoking and tobacco status: never smoked Alcohol intake: current Alcohol intake frequency: 0-2 Drinks per Day Alcohol type: beer Substance/Drug Use: never Lives independently: Yes Household members: spouse Marital status: Physical Exam Const: GENERAL APPEARANCE: cooperative and comfortable ORIENTATION/CONSCIOUSNESS: Yes awake, Yes oriented to person, Yes oriented to place and Yes oriented to time HENMT: COMMON NORMALS: normocephalic, atraumatic and hearing grossly normal bilaterally HEAD & SCALP: normocephalic and atraumatic Resp: COMMON NORMALS: normal respiratory effort, No retractions, No use of accessory muscles and clear to auscultation bilaterally AUSCULTATION: clear to auscultation bilaterally Cardio: COMMON NORMALS: regular rate, regular rhythm and No murmurs present (Cardio) RATE: regular rate RHYTHM: regular rhythm GI: COMMON NORMALS: Soft to palpation and No hepatosplenomegaly present AUSCULTATION: Yes normoactive bowel sounds PALPATION: Yes Soft to palpation, No Tenderness to palpation present (GI), No Guarding due to palpation present (GI) and Yes No hepatosplenomegaly present Extremity: COMMON NORMALS: normal to inspection, capillary refill normal, no clubbing, cyanosis or edema, no calf tenderness and no pedal edema Neuro: SENSORIUM/ORIENTATION: Yes oriented to person, Yes oriented to place and Yes oriented to time Skin: COMMON NORMALS: no rashes or lesions noted GENERAL SKIN EXAM: no rashes or lesions noted Course Vital Signs: Vital signs: Vital Signs Temperature 97.9 F 03/07/23 12:03 Pulse Rate 46 L 03/07/23 15:20 Respiratory Rate 15 03/07/23 15:20 Blood Pressure 128/79 03/07/23 12:03 Pulse Oximetry 97 03/07/23 15:20 Oxygen Delivery Me thod Room Air 03/07/23 12:03 MDM - Chest Pain Medical Decision Making Stress test showed no reversible ischemia but evidence of an old infarct in the distribution of the left circumflex. Interestingly patient does not have any pain while exercising in fact he specifically notes that exercising does not seem to follow or recur any symptoms been going on for 3 weeks he has no acute EKG changes troponin is unremarkable. We will discharge patient home he was noted to be bradycardic but his blood pressure was stable. Going to have him decrease his Coreg add amlodipine at 2.5 mg daily and follow-up with his doctor within the next week he has had a stress test earlier this year and he has follow-up appointment with Dr. Alicea he should keep that appointment has recurrence or change symptoms return Medical Records I reviewed the patient's medical records. Lab Data I reviewed the patient's lab results. 03/07/23 13:02 03/07/23 13:02 Laboratory Results WBC 5.37 10^3/uL (3.29-11.43) 03/07/23 13:02 RBC 4.94 10^6/uL (3.85-5.65) 03/07/23 13:02 Hgb 16.30 g/dL (11.27-16.99) 03/07/23 13:02 Hct 46.4 % (37-53) 03/07/23 13:02 MCV 93.9 fl (82-101) 03/07/23 13:02 MCH 33.0 pg (27-33) 03/07/23 13:02 MCHC 35.1 g/dL (30-55) 03/07/23 13:02 RDW 12.6 % (12.1-15.1) 03/07/23 13:02 Plt Count 142 10^3/cmm (157-399) L 03/07/23 13:02 MPV 10.8 fL (7.4-10.4) H 03/07/23 13:02 Neut % (Auto) 59.6 % 03/07/23 13:02 Lymph % (Auto) 20.3 % 03/07/23 13:02 [place] % (Auto) 12.1 % 03/07/23 13:02 Eos % (Auto) 6.7 % 03/07/23 13:02 Baso % (Auto) 0.9 % 03/07/23 13:02 Neut # (Auto) 3.20 10^3/uL (1.8-7.7) 03/07/23 13:02 Lymph # (Auto) 1.1 10^3/uL (0.8-4.8) 03/07/23 13:02 [place] # (Auto) 0.7 10^3/uL (0.2-0.9) 03/07/23 13:02 Eos # (Auto) 0.4 10^3/uL (0.0-0.8) 03/07/23 13:02 Baso # (Auto) 0.1 10^3/uL (0.0-0.1) 03/07/23 13:02 Nucleated RBC % (auto) 0 % 03/07/23 13:02 Nucleated RBCs # 0.0 /100WBC 03/07/23 13:02 Sodium 131 mmol/L (136-145) L 03/07/23 13:02 Potassium 4.2 mmol/L (3.5-5.1) 03/07/23 13:02 Chloride 92 mmol/L (98-107) L 03/07/23 13:02 Carbon Dioxide 29 mmol/L (22-29) 03/07/23 13:02 Anion Gap 14.2 (5-19) 03/07/23 13:02 BUN 9 mg/dL (8-23) 03/07/23 13:02 Creatinine 1.0 mg/dL (0.7-1.2) 03/07/23 13:02 GFR Calculation Not Reportable 03/07/23 13:02 Glucose 100 mg/dL (65-115) 03/07/23 13:02 Calculated Osmolality 271 mOsm/kg (285-295) L 03/07/23 13:02 Calcium 9.5 mg/dL (8.5-10.5) 03/07/23 13:02 Total Bilirubin 1.0 mg/dL (0.15-1.2) 03/07/23 13:02 AST 46 U/L (0-40) H 03/07/23 13:02 ALT 39 U/L (0-41) 03/07/23 13:02 Alkaline Phosphatase 65 U/L (40-130) 03/07/23 13:02 Troponin T Baseline 12 ng/L (0-15) 03/07/23 13:02 Total Protein 7.1 g/dL (6.6-8.7) 03/07/23 13:02 Albumin 4.5 g/dL (3.5-5.2) 03/07/23 13:02 Globulin 2.6 g/dL (1.3-4.6) 03/07/23 13:02 No radiology studies performed this visit Discharge Plan Discharge Patient Disposition: Home Clinical Impression: Atypical chest pain, Hypertension, History of bicuspid aortic valve, Bradycardia Condition: Stable Prescriptions: New amlodipine 2.5 mg tablet 2.5 mg PO DAILY Qty: 30 0RF Changed Coreg 6.25 mg tablet 3.125 mg PO BID Qty: 180 1RF Rx Instructions: must administer with a meal/food No Action lisinopril 40 mg tablet 40 mg PO DAILY aspirin [Adult Aspirin Regimen] 81 mg tablet,delayed release (/EC) 81 mg PO DAILY hydrochlorothiazide 25 mg tablet 25 mg PO DAILY Qty: 90 3RF warfarin 7.5 mg tablet See Rx Instructions .ROUTE .COMPLEX Rx Instructions: 3.75 mg Friday-Friday and 7.5 mg on Friday Discharge Orders: Discharge ED (Routine); Ordered 03/07/23 Ordered By: Blair Bolanos Referrals: Sukh Mendez DO [Primary Care Provider] - Discharge Diet: Usual diet Discharge Activity: Limit activity as instructed Patient Instructions: Opioid Safety, Pain Management Activity Restrictions/Additional Instructions: You were seen today for atypical chest pain. Your heart enzymes were negative. Your recent stress test was negative for any reversible ischemia. You were noted here in the emergency room to have a low heart rate with a normal blood pressure recommend that you decrease your carvedilol to 3.125 mg twice daily and add amlodipine 2.5 mg daily continue your lisinopril follow-up with Dr. Mendez or with a psychological operations specialist within the next week. 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
[2023-03-07 13:39] LABS: Basophils # 0.1 10^3/uL (0.0-0.1); Basophils % 0.9 %; Eosinophils # 0.4 10^3/uL (0.0-0.8); Eosinophils % 6.7 %; Hematocrit 46.4 % (37-53); Lymphocytes # 1.1 10^3/uL (0.8-4.8); Lymphocytes % 20.3 %; Mean Corpuscular HGB Conc 35.1 g/dL (30-55); Mean Corpuscular Volume 93.9 fl (82-101); Mean Platelet Volume 10.8 fL (7.4-10.4); Monocytes # 0.7 10^3/uL (0.2-0.9); Monocytes % 12.1 %; Neutrophils % 59.6 %; Nucleated Red Blood Cells % 0 %; Platelet Count 142 10^3/cmm (157-399); Red Blood Count 4.94 10^6/uL (3.85-5.65); Red Cell Distribution Width 12.6 % (12.1-15.1); White Blood Count 5.37 10^3/uL (3.29-11.43)
[2023-03-07 13:50] LABS: Troponin(5th) Baseline 12 ng/L (0-15)
[2023-03-07] MEDS: aspirin 81 mg Chew Tablet 324 MG PO (13:52)
[2023-03-07 13:56] LABS: Alanine Aminotransferase 39 U/L (0-41); Albumin Level 4.5 g/dL (3.5-5.2); Alkaline Phosphatase 65 U/L (40-130); Anion Gap 14.2 (5-19); Aspartate Amino Transferase 46 U/L (0-40); Blood Urea Nitrogen 9 mg/dL (8-23); Calcium 9.5 mg/dL (8.5-10.5); Carbon Dioxide 29 mmol/L (22-29); Chloride 92 mmol/L (98-107); Globulin 2.6 g/dL (1.3-4.6); Glucose 100 mg/dL (65-115); Osmolality Calculated 271 mOsm/kg (285-295); Potassium 4.2 mmol/L (3.5-5.1); Sodium 131 mmol/L (136-145); Total Protein 7.1 g/dL (6.6-8.7)
[2023-03-07 15:20] VITALS: PULSE 46; RESP 15; O2SAT 97
--- NOTE | 2023-03-07 15:28 | ECG_ITS ---
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 Measurements Intervals [place] Rate: 40 P: -3 KS: 144 QRS: -79 QRSD: 186 T: -40 QT: 505 QTc: 416 Interpretive Statements SINUS BRADYCARDIA RIGHT BUNDLE BRANCH BLOCK LEFT ANTERIOR FASCICULAR BLOCK [QRS AXIS <= -45, QR IN I, RS IN II] POSSIBLE LEFT VENTRICULAR HYPERTROPHY [VOLTAGE CRITERIA PLUS LAE OR QRS WIDENING] MODERATE T-WAVE ABNORMALITY, CONSIDER LATERAL ISCHEMIA MODERATE T-WAVE ABNORMALITY, CONSIDER INFERIOR ISCHEMIA Compared to ECG 03/07/2023 12:01:32 Myocardial infarct finding no longer present T-wave abnormality still present Possible ischemia still present Electronically Signed On 03-07-2023 20:08:48 CDT by Elidia Tamez M.D. [id number]
== END 2023-03-07 15:21 | disposition home or self-care (01) ==
PROVIDERS: Emergency Provider Family Medicine; PCP Internal Medicine
DX: R07.89 Other chest pain (principal); I10 Essential (primary) hypertension; R00.1 Bradycardia, unspecified; Z95.2 Presence of prosthetic heart valve; Z79.82 Long term (current) use of aspirin; Z79.01 Long term (current) use of anticoagulants; E78.5 Hyperlipidemia, unspecified
CPT/HCPCS: 80053; 84484; 85025; 93005; 99285

== ENCOUNTER → 2023-03-14 10:50 | Outpatient (BNVA) | payer MEDICARE, OTHER, SELFPAY | PROVIDERS: PCP Internal Medicine; Visit Provider Internal Medicine | DX: I25.10 Atherosclerotic heart disease of native coronary artery without angina pectoris (principal); Z87.74 Personal history of (corrected) congenital malformations of heart and circulatory system; I10 Essential (primary) hypertension; Z95.2 Presence of prosthetic heart valve; Z79.01 Long term (current) use of anticoagulants | CPT/HCPCS: 99214 ==

== ENCOUNTER → 2023-09-11 14:30 | Outpatient (BNVA) | payer MEDICARE, OTHER, SELFPAY | PROVIDERS: PCP Internal Medicine; Visit Provider Internal Medicine | DX: I25.10 Atherosclerotic heart disease of native coronary artery without angina pectoris (principal); Z95.2 Presence of prosthetic heart valve; Z87.74 Personal history of (corrected) congenital malformations of heart and circulatory system; I10 Essential (primary) hypertension; Z79.01 Long term (current) use of anticoagulants | CPT/HCPCS: 99214 ==

== ENCOUNTER 2023-09-23 09:33 | Outpatient (CLI) | payer MEDICARE, OTHER, SELFPAY ==
--- NOTE | 2023-09-23 10:00 | USCV_ITS ---
Pepe Morrow Age: 72 Gender: M : 1950 Exam Date: 09/23/2023 09:40 Ordering Phys: Kendrick Gabriel M.D ([email or web address]) Technologist: [place] [facility] [place]ication: ao pros BP: 120 / 70 HR: 98 Rhythm: Sinus Technical Quality: MEASUREMENTS (Male / Female) Normal Values 2D ECHO LV Diastolic Diameter PLAX 5.2 cm 4.2 - 5.9 / 3.9 - 5.3 cm IVS Diastolic Thickness 1.5 cm 0.6 - 1.0 / 0.6 - 0.9 cm IVS Systolic Thickness 1.8 cm LVPW Diastolic Thickness 1.3 cm 0.6 - 1.0 / 0.6 - 0.9 cm LVPW Systolic Thickness 1.8 cm LVOT Diameter 2.0 cm LV Ejection Fraction 2D Teich 79.0 % LV Ejection Fraction MOD 2C 67.3 % LV Ejection Fraction 2C AL 68.3 % RA Systolic Volume 4C AL 30.7 ml RA Systolic Volume 4C MOD 28.9 ml LA Sys Volume AL 35.4 cm cubed LA Sys Volume Index AL 19.1 cm cubed/m squared IVC Diameter 1.2 cm DOPPLER AV Peak Velocity 230.3 cm/s LVOT Peak Velocity 85.0 cm/s AV Area Cont Eq vti 1.5 cm squared AV Area Cont Eq pk 1.2 cm squared MV Peak Velocity 54.0 cm/s MV Area PHT 2.3 cm squared Mitral E to A Ratio 0.7 TR Peak Velocity 241.0 cm/s TR Peak Gradient 23.2 mmHg TV Peak E Velocity 105.0 cm/s PV Peak Velocity 84.0 cm/s FINDINGS Left Ventricle Left ventricle is normal size. LV systolic function is normal with EF of 55 to 60%. No regional wall motion abnormalities are seen. Grade 1 diastolic dysfunction. Right Ventricle Normal in size and function Right Atrium Normal in size Left Atrium Normal in size Mitral Valve Structurally normal mitral valve. Trace mitral regurgitation. Aortic Valve Likely mechanical aortic valve. Mean gradient across aortic valve of 11 mmHg. DVI is normal and is 0.44. Tricuspid Valve Mild tricuspid regurgitation. Pulmonary artery systolic pressure is normal Pulmonic Valve Not well-visualized. Pericardium Normal Aorta Normal in size IVC Appears to be normal CONCLUSIONS LV systolic function is normal with EF of 55 to 60%. Grade 1 diastolic dysfunction. Trace mitral regurgitation. Normally functioning mechanical aortic valve. Mild tricuspid regurgitation Compared to prior echocardiogram from 2022, no significant changes are seen. Kendrick Gabriel MD (Electronically Signed) Final Date: 04 Oct 2023 21:17 S
== END 2023-09-23 09:34 | disposition home or self-care (01) ==
LOC: RAD 09:35
PROVIDERS: PCP Internal Medicine; Visit Provider Internal Medicine
DX: Z95.2 Presence of prosthetic heart valve (principal); R06.02 Shortness of breath
CPT/HCPCS: 93306

== ENCOUNTER → 2024-06-10 14:38 | Outpatient (BNVA) | payer MEDICARE, OTHER, SELFPAY | PROVIDERS: PCP Internal Medicine; Visit Provider Internal Medicine | DX: I25.10 Atherosclerotic heart disease of native coronary artery without angina pectoris (principal); Z87.74 Personal history of (corrected) congenital malformations of heart and circulatory system; I10 Essential (primary) hypertension; Z95.2 Presence of prosthetic heart valve | CPT/HCPCS: 99214 ==

== ENCOUNTER → 2025-03-10 15:24 | Outpatient (BNVA) | payer MEDICARE, OTHER, SELFPAY | PROVIDERS: PCP Internal Medicine; Visit Provider Internal Medicine | DX: I25.10 Atherosclerotic heart disease of native coronary artery without angina pectoris (principal); I10 Essential (primary) hypertension; Z79.01 Long term (current) use of anticoagulants; Z95.2 Presence of prosthetic heart valve; Z87.74 Personal history of (corrected) congenital malformations of heart and circulatory system; R07.9 Chest pain, unspecified; R00.1 Bradycardia, unspecified | CPT/HCPCS: 93005; 99214 ==

== ENCOUNTER 2025-03-10 16:06 | Emergency (ER) | payer MEDICARE, OTHER, SELFPAY ==
[2025-03-10 16:09] VITALS: BP 143/81; PULSE 74; RESP 16; O2SAT 98
--- NOTE | 2025-03-10 16:18 | ECG_ITS ---
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1950 Requested By: Stacy Ho Order Number: [id number] Phillips MD: OSMAR MONTERO Measurements Intervals [place] Rate: 51 P: -3 KS: 167 QRS: -67 QRSD: 189 T: 19 QT: 484 QTc: 448 Interpretive Statements SINUS BRADYCARDIA WITH OCCASIONAL VENTRICULAR PREMATURE COMPLEXES LEFT AXIS DEVIATION [QRS AXIS < -30] RIGHT BUNDLE BRANCH BLOCK [120+ ms QRS DURATION, UPRIGHT V1, 40+ ms S IN I/aVL/V4/V5/V6] MODERATE VOLTAGE CRITERIA FOR LVH, CONSIDER NORMAL VARIANT [MEETS CRITERIA IN ONE OF: R(aVL), S(V1), R(V5), R(V5/V6)+S(V1)] POSSIBLE SEPTAL MYOCARDIAL INFARCTION , PROBABLY OLD [30 ms Q WAVE IN V1/V2] Compared to ECG 03/10/2025 15:28:26 Left-axis deviation now present Myocardial infarct finding now present Atrial abnormality no longer present Left anterior fascicular block no longer present Electronically Signed On 03-10-2025 16:48:02 CDT by OSMAR MONTERO [id number]
--- NOTE | 2025-03-10 16:38 | CTR_ITS ---
PROCEDURE INFORMATION: Exam: CT Head Without Contrast Exam date and time: 03/10/2025 5:11 PM Age: 74 years old Clinical indication: Altered mental status/memory loss; Patients daughter reports patient has had very consistent moments of confusion and unable to speak the proper words. ; Additional info: Encephalopathy, altered mental status TECHNIQUE: Imaging protocol: Computed tomography of the head without contrast. Radiation optimization: All CT scans at this facility use at least one of these dose optimization techniques: automated exposure control; mA and/or kV adjustment per patient size (includes targeted exams where dose is matched to clinical indication); or iterative reconstruction. COMPARISON: No relevant prior studies available. RADIATION DOSE METRICS: Total DLP (mGy-cm): 1182.64 FINDINGS: Brain: Ill-defined infiltrative hyperdense appearance of the gannon matter of the inferior left parietal and left temporal lobes concerning for a mass lesion measuring up to 6.5 x 3.3 x 6 cm with a cystic component measuring 2.8 x 2.8 cm in the axial plane. No definite CT evidence of acute infarction. No significant mediastinal shift. Cerebral ventricles: Mass effect on the lateral ventricle. No intraventricular hemorrhage. Paranasal sinuses: Visualized sinuses are unremarkable. No fluid levels. Mastoid air cells: Visualized mastoid air cells are well aerated. Bones: Unremarkable. No acute fracture. Soft tissues: Unremarkable. CT/CT head wo con* [id number] IMPRESSION: 1. Ill-defined infiltrative hyperdense appearance of the gannon matter of the inferior left parietal and left temporal lobes concerning for a mass lesion measuring up to 6.5 x 3.3 x 6 cm with a cystic component measuring 2.8 x 2.8 cm in the axial plane. Recommend further evaluation with MRI of the brain with and without contrast. 2. Mass effect on the left lateral ventricle. 3. Otherwise, no acute intracranial findings identified on CT.
--- NOTE | 2025-03-10 16:39 | XRR_ITS ---
PROCEDURE INFORMATION: Exam: XR Chest Exam date and time: 03/10/2025 4:42 PM Age: 74 years old Clinical indication: Other: Weakness TECHNIQUE: Imaging protocol: Radiologic exam of the chest. Views: 1 view. COMPARISON: CR XR chest 1V portable [id number] 08/17/2022 9:09 PM FINDINGS: Tubes, catheters and devices: Prosthetic mitral valve. Lungs: No infiltrates. No suspicious masses or nodules. No pulmonary vascular congestion. Pleural spaces: No pleural effusions or pneumothorax. Heart/Mediastinum: Stable mild cardiomegaly. Vasculature: Significant tortuosity of the thoracic aorta limiting evaluation for left mediastinal masses. Bones/joints: No significant osseous lesion. No fractures. XR/XR chest 1V portable [id number] IMPRESSION: 1. No acute cardiopulmonary findings radiographically. 2. Stable mild cardiomegaly. 3. Significant tortuosity of the thoracic aorta limiting evaluation for left mediastinal masses.
[2025-03-10 16:49] VITALS: BP 160/83; PULSE 50; RESP 28; O2SAT 98
--- NOTE | 2025-03-10 16:52 | ED_ITS ---
HPI - Neuro Symptoms/Deficit 2 General: Chief Complaint: Neuro Symptoms/Deficit Stated Complaint: stroke like symptoms Time Seen by Provider: 03/10/25 16:13 History of Present Illness: 74-year-old man with a history of garcia ry artery disease, chronic anticoagulation on Coumadin, hypertension, hyperlipidemia, aortic stenosis, mechanical aortic valve who presents emergency room with family for episodes of altered mental status. Was seen in cardiology clinic today. He did come up that he had been having issues with word finding difficulties that comes and goes. Currently he occasionally does have some trouble with coming up with words. He has no focal motor deficits and is alert and oriented. No fevers. No cough. No abdominal pain. No nausea or vomiting. Related Data Home Medications ?Medication ?Instructions ?Recorded ?Confirmed lisinopril 40 mg tablet 40 mg PO DAILY 02/08/2002/24 warfarin 7.5 mg tablet See Rx Instructions .Route . COMPLEX 03/07/23 03/10/25 Previous Rx's ?Medication ?Instructions ?Recorded hydrochlorothiazide 25 mg tablet 25 mg PO DAILY #90 ta bs 08/04/24 carvedilol 6.25 mg tablet See Rx Instructions .Route 0 12/09/24 .COMPLEX #90 tabs dexamethasone 4 mg tablet 4 mg PO TID 10 days #30 tabs 03/10/25 Allergies Allergy/AdvReac Type Severity Reaction Status Date / Time amlodipine Allergy Unknown Unknown Verified 06/10/24 15:37 Review of Systems 2 Narrative: Constitutional symptoms: Negative except as documented in HPI. Skin symptoms: Negative except as documented in HPI. Eye symptoms: Negative except as documented in HPI. ENMT symptoms: Negative except as documented in HPI. Respiratory symptoms: Negative except as documented in HPI. Cardiovascular symptoms: Negative except as documented in HPI. Gastrointestinal symptoms: Negative except as documented in HPI. Genitourinary symptoms: Negative except as documented in HPI. Musculoskeletal symptoms: Negative except as documented in HPI. Neurologic symptoms: Negative except as documented in HPI. Psychiatric symptoms: Negative except as documented in HPI. Endocrine symptoms: Negative except as documented in HPI. PFSH ED 2 PFSH: Medical History (Updated 03/10/25 @ 18:53 by Stacy Salazar MD) History of hypertension Hx of cardiac murmur Hx of hyperlipidemia Hx of aortic valve stenosis Hx of carpal tunnel syndrome Surgical History (Updated 03/10/25 @ 18:53 by Stacy Salazar MD) Hx of aortic valve replacement History of tonsillectomy and adenoidectomy Hx of vasectomy Hx of spinal surgery History of carpal tunnel release of both wrists Family History Denies family history of Diabetes CAD (coronary artery disease) Cancer Hypertension Social History Smoking and tobacco/nicotine status: never used tobacco/nicotine Alcohol intake: current Alcohol intake frequency: 0-2 Drinks per Day Alcohol type: beer Substance/Drug Use: never Lives independently: Yes Household members: spouse Marital status: Physical Exam 2 Narrative: EXAM NARRATIVE: General: Alert, no acute distress. Skin: Warm, dry. Head: Normocephalic, atraumatic. Neck: Supple, trachea midline. Eye: Extraocular movements are intact. Ears, nose, mouth and throat: mucosa moist. Cardiovascular: Regular, Normal peripheral perfusion. Respiratory: Lungs are clear to auscultation, respirations are non-labored, breath sounds are equal, Symmetrical chest wall expansion. Gastrointestinal: Soft, Nontender, Non distended Musculoskeletal: Normal ROM, no deformity. Neurological: Alert and oriented, No focal neurological deficit observed. Psychiatric: Cooperative, appropriate mood & affect. Course 2 Vital Signs: Vital signs: Vital Signs Pulse Rate 58 L 03/10/25 19:11 Respiratory Rate 20 H 03/10/25 19:11 Blood Pressure 140/69 03/10/25 19:11 Pulse Oximetry 97 03/10/25 19:11 Oxygen Delivery Me thod Room Air 03/10/25 16:09 MDM - Neuro Symptoms/Deficit Medical Decision Making Medical decision making: Differential diagnosis including but not limited to and based on the above HPI, review of systems and physical exam: In this patient with altered mental status: Stroke. Hypoglycemia. Metabolic encephalopathy. Infections such as pneumonia, urinary tract infection, Covid-19, Influenza. Electrolyte abnormalities such as hypernatremia. Renal failure / uremia. Hepatic encephalopathy. Hypoxemia. Hypercapnic respiratory failure. Psychosis. Drug or alcohol intoxication. Medication overdose. Orders placed to evaluate differential diagnosis based on the above differential, HPI and physical exam EKG: Time 1618. Rate 51. Sinus bradycardia, nonspecific ST changes., PVCs, right bundle branch block, This was reviewed and interpreted by myself the ER physician at 1622 Repeat EKG: Time 1852. Rate 52. Sinus bradycardia, nonspecific ST changes., PVCs, right bundle branch block, This was reviewed and interpreted by myself the ER physician at 1858 Chest x-ray: Borderline cardiomegaly. Mechanical valve seen. Sternotomy wires in place. No obvious infiltrates or edema. This was reviewed and interpreted by myself the emergency room physician. I also reviewed the radiology report. CT head: Ill-defined infiltrative hyperdense appearance at the gannon matter of the inferior left parietal and left temporal lobes is concerning for a mass. This is approximately 6 x 3 x 6 with a cystic component. This is compressing the ventricle on the left side but no mass effect or herniation. Lab Review: Laboratory results were reviewed and interpreted by myself the emergency room physician. No leukocytosis. No anemia. No renal failure. INR is 2.2 as would be expected in this patient with Coumadin. Urinalysis is negative for infection. I reviewed the patient's medical record. 74-year-old man with a history of coronary artery disease, chronic anticoagulation on Coumadin, hypertension, hyperlipidemia, aortic stenosis, mechanical aortic valve. Was seen in cardiology clinic today. He did come up that he had been having issues with word finding difficulties that comes and goes. Reexamination: Patient remained stable. No increased work of breathing. No altered mental status. No focal motor deficits. Still with some mild speech issues at times but he still communicates fairly effectively. Consultation: I spoke with Dr. Crawford who is on-call for oncology. With the patient having symptoms he recommends transfer to [facility], however the emergency neurosurgeon preferred to see him as an outpatient tomorrow Consultation: I spoke with Dr. Vadim benson poured concrete wall technician with neurosurgery at [facility] in [place]. He was does not recommend transfer but rather will see the patient tomorrow in clinic either him or one of his partners. I discussed this with the family and they are agreeable and will return the patient to the emergency room if things worsen. Assessment and plan: Brain mass Dysphasia ?IV Decadron in the emergency room. - Discharged home - Discussed plan with patient. Answered any questions. - Evaluation and treatment of this problem were appropriate in the emergency setting. Lab Data 03/10/25 16:47 03/10/25 16:[address] 03/10/25 16:38 IMPRESSION: 1. Ill-defined infiltrative hyperdense appearance of the gannon matter of the inferior left parietal and left temporal lobes concerning for a mass lesion measuring up to 6.5 x 3.3 x 6 cm with a cystic component measuring 2.8 x 2.8 cm in the axial plane. Recommend further evaluation with MRI of the brain with and without contrast. 2. Mass effect on the left lateral ventricle. 3. Otherwise, no acute intracranial findings identified on CT. ADDENDUM: 03/10/25 1742 THIS REPORT CONTAINS FINDINGS THAT MAY BE CRITICAL TO PATIENT CARE. The findings were verbally communicated via telephone conference with STACY SALAZAR at 5:49 PM CDT on 03/10/2025. The findings were acknowledged and understood. Chest X-Ray 03/10/25 16:39 IMPRESSION: 1. No acute cardiopulmonary findings radiographically. 2. Stable mild cardiomegaly. 3. Significant tortuosity of the thoracic aorta limiting evaluation for left mediastinal masses. Laboratory Results WBC 7.48 10^3/uL (3.29-11.43) 03/10/25 16:47 RBC 4.99 10^6/uL (3.85-5.65) 03/10/25 16:47 Hgb 15.10 g/dL (11.27-16.99) 03/10/25 16:47 Hct 44.0 % (37-53) 03/10/25 16:47 MCV 88.2 fl (82-101) 03/10/25 16:47 MCH 30.3 pg (27-33) 03/10/25 16:47 MCHC 34.3 g/dL (30-55) 03/10/25 16:47 RDW 13.2 % (12.1-15.1) 03/10/25 16:47 Plt Count 151 10^3/cmm (157-399) L 03/10/25 16:47 MPV 10.9 fL (7.4-10.4) H 03/10/25 16:47 Neut % (Auto) 58.5 % 03/10/25 16:47 Lymph % (Auto) 26.9 % 03/10/25 16:47 Bryan % (Auto) 8.4 % 03/10/25 16:47 Eos % (Auto) 4.9 % 03/10/25 16:47 Baso % (Auto) 1.2 % 03/10/25 16:47 Neut # (Auto) 4.37 10^3/uL (1.8-7.7) 03/10/25 16:47 Lymph # (Auto) 2.0 10^3/uL (0.8-4.8) 03/10/25 16:47 Bryan # (Auto) 0.6 10^3/uL (0.2-0.9) 03/10/25 16:47 Eos # (Auto) 0.4 10^3/uL (0.0-0.8) 03/10/25 16:47 Baso # (Auto) 0.1 10^3/uL (0.0-0.1) 03/10/25 16:47 Nucleated RBC % (auto) 0 % 03/10/25 16:47 Nucleated RBCs # 0.0 /100WBC 03/10/25 16:47 PT 26.40 SECONDS (12.1-14.9) H 03/10/25 16:47 INR 2.27 (0.8-1.2) H 03/10/25 16:47 APTT 40.3 SECONDS (23.9-36.7) H 03/10/25 16:47 Sodium 134 mmol/L (136-145) L 03/10/25 16:47 Potassium 4.3 mmol/L (3.5-5.1) 03/10/25 16:47 Chloride 96 mmol/L (98-107) L 03/10/25 16:47 Carbon Dioxide 26 mmol/L (22-29) 03/10/25 16:47 Anion Gap 16.3 (5-19) 03/10/25 16:47 BUN 10 mg/dL (8-23) 03/10/25 16:47 Creatinine 1.0 mg/dL (0.7-1.2) 03/10/25 16:47 GFR Calculation Not Reportable 03/10/25 16:47 Glucose 88 mg/dL (65-115) 03/10/25 16:47 Calculated Osmolality 276 mOsm/kg (285-295) L 03/10/25 16:47 Lactic Acid 1.2 mmol/L (0.5-2.2) 03/10/25 16:47 Calcium 9.7 mg/dL (8.5-10.5) 03/10/25 16:47 Total Bilirubin 1.5 mg/dL (0.15-1.2) H 03/10/25 16:47 AST 25 U/L (0-40) 03/10/25 16:47 ALT 10 U/L (0-41) 03/10/25 16:47 Alkaline Phosphatase 49 U/L (40-130) 03/10/25 16:47 Troponin T Baseline 19 ng/L (0-15) H 03/10/25 16:47 Troponin T 120 Minute 16.89 ng/L (0-15) H 03/10/25 18:30 Delta Troponin T -2.11 ABS# (0-10) L 03/10/25 18:30 NT-Pro-B Natriuret Pep 294 pg/mL (0-450) 03/10/25 16:47 Total Protein 7.2 g/dL (6.6-8.7) 03/10/25 16:47 Albumin 4.5 g/dL (3.5-5.2) 03/10/25 16:47 Globulin 2.7 g/dL (1.3-4.6) 03/10/25 16:47 Urine Color Yellow (Yellow) 03/10/25 17:07 Urine Appearance Clear (CLEAR) 03/10/25 17:07 Urine pH 6.5 (5-7) 03/10/25 17:07 Ur Specific [place] 1.009 (1.005-1.030) 03/10/25 17:07 Urine Protein Negative (Negative) 03/10/25 17:07 Urine Glucose (UA) Negative (Normal) 03/10/25 17:07 Urine Ketones Trace (Negative) 03/10/25 17:07 Urine Blood Negative (Negative) 03/10/25 17:07 Urine Nitrate Negative (Negative) 03/10/25 17:07 Urine Bilirubin Negative (Negative) 03/10/25 17:07 Urine Urobilinogen 0.2 mg/dL (Negative) 03/10/25 17:07 Ur Leukocyte Esterase Negative (Negative) 03/10/25 17:07 Urine RBC None /hpf (0-2) 03/10/25 17:07 Urine WBC None /hpf (0-5) 03/10/25 17:07 Ur Squamous Epith Cells None /hpf (0-5) 03/10/25 17:07 Amorphous Sediment Not Reportable 03/10/25 17:07 Urine Bacteria None /hpf (NONE) 03/10/25 17:07 Urine Mucus None /hpf 03/10/25 17:07 All radiology interpretation(s) finalized by discharge Discharge Plan Discharge Patient Disposition: Home Clinical Impression: Brain mass, Dysphasia, Chronic anticoagulation, H/O mechanical aortic valve replacement Condition: Stable Prescriptions: New dexamethasone 4 mg tablet 4 mg PO TID 10 Days Qty: 30 0RF No Action lisinopril 40 mg tablet 40 mg PO DAILY hydrochlorothiazide 25 mg tablet 25 mg PO DAILY Qty: 90 3RF carvedilol 6.25 mg tablet See Rx Instructions .ROUTE .COMPLEX Qty: 90 3RF Dose Instruction: TAKE 1/2 TABLET BY MOUTH TWICE A DAY WITH MEAL/FOOD Rx Instructions: TAKE 1/2 TABLET BY MOUTH TWICE A DAY WITH MEAL/FOOD warfarin 7.5 mg tablet See Rx Instructions .ROUTE .COMPLEX Rx Instructions: 3.75 mg Friday-Friday and 7.5 mg on Friday Discharge Orders: Discharge ED (Routine); Ordered 03/10/25 Ordered By: Stacy Salazar Referrals: Jarred Benson MD [Occupational Therapist, General Surgery] - 03/11/25 Referral Note: Please call for an appointment in the morning. Dr. Benson or one of his associates will see you. Clinical Impression: Brain mass Sukh Mendez DO [Primary Care Provider, Internal Medicine] Discharge Diet: Usual diet Discharge Activity: Increase activity as tolerated Patient Instructions: Opioid Safety, Pain Management, Patient Portal & Ashwin Instructions Activity Restrictions/Additional Instructions: Please call for an appointment. The number given to me by Dr. Alberto delarosa was [phone]. There is another clinic number listed in the referral section. If you develop any worsening neurologic symptoms, seizures, altered mental status please return to the emergency room immediately Thank you for choosing [facility] for your healthcare needs today. You have been screened and evaluated and felt safe for discharge. Health conditions do change or evolve sometimes and as such it is important that you follow up with your Primary Doctor to be re checked, 3-5 days is a general good time frame for follow up. You are always welcome to return to the ED for re assessment if your symptoms are worsening or you have new concerns Print Language: Guatemalan Coding Level of Care Code ED Physician Office Secretary for Isaac Mason
[2025-03-10 17:05] LABS: Hematocrit 44.0 % (37-53); Hemoglobin 15.10 g/dL (11.27-16.99); Mean Corpuscular HGB Conc 34.3 g/dL (30-55); Mean Corpuscular Hemoglobin 30.3 pg (27-33); Mean Corpuscular Volume 88.2 fl (82-101); Nucleated Red Blood Cells % 0 %; Platelet Count 151 10^3/cmm (157-399); Red Blood Count 4.99 10^6/uL (3.85-5.65); White Blood Count 7.48 10^3/uL (3.29-11.43)
[2025-03-10 17:21] LABS: INR 2.27 (0.8-1.2); Prothrombin Time 26.40 SECONDS (12.1-14.9)
[2025-03-10 17:22] LABS: Partial Thromboplastin Time 40.3 SECONDS (23.9-36.7)
[2025-03-10 17:27] LABS: Lactic Sepsis W/Reflex 1.2 mmol/L (0.5-2.2)
[2025-03-10 17:42] LABS: Glucose Urine UA Negative (Normal); Nitrate Urine Negative (Negative); Specific Gravity, Urine 1.009 (1.005-1.030)
[2025-03-10 17:49] LABS: Troponin(5th) Baseline 19 ng/L (0-15)
[2025-03-10 17:59] LABS: Alanine Aminotransferase 10 U/L (0-41); Albumin Level 4.5 g/dL (3.5-5.2); Alkaline Phosphatase 49 U/L (40-130); Anion Gap 16.3 (5-19); Aspartate Amino Transferase 25 U/L (0-40); Blood Urea Nitrogen 10 mg/dL (8-23); Calcium 9.7 mg/dL (8.5-10.5); Carbon Dioxide 26 mmol/L (22-29); Chloride 96 mmol/L (98-107); Creatinine Clr Calc Pharmacy 57.7980; Globulin 2.7 g/dL (1.3-4.6); Glucose 88 mg/dL (65-115); NT Pro B Type Natriuretic Pept 294 pg/mL (0-450); Osmolality Calculated 276 mOsm/kg (285-295); Potassium 4.3 mmol/L (3.5-5.1); Sodium 134 mmol/L (136-145); Total Protein 7.2 g/dL (6.6-8.7)
[2025-03-10 18:09] VITALS: BP 177/105; PULSE 50; RESP 22; O2SAT 99
--- NOTE | 2025-03-10 18:38 | ECG_ITS ---
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: : 1950 Requested By: Stacy Ho Order Number: [id number] Jacqueline MD: OSMAR MONTERO Measurements Intervals [place] Rate: 52 P: 16 AR: 183 QRS: -75 QRSD: 184 T: 0 QT: 504 QTc: 471 Interpretive Statements SINUS BRADYCARDIA WITH FREQUENT VENTRICULAR PREMATURE COMPLEXES POSSIBLE LEFT ATRIAL ENLARGEMENT [-0.1mV P-WAVE IN V1/V2] RIGHT BUNDLE BRANCH BLOCK [120+ ms QRS DURATION, UPRIGHT V1, 40+ ms S IN I/aVL/V4/V5/V6] LEFT ANTERIOR FASCICULAR BLOCK [QRS AXIS <= -45, QR IN I, RS IN II] LEFT VENTRICULAR HYPERTROPHY AND ST-T CHANGE [VOLTAGE CRITERIA PLUS ST/T ABNORMALITY] POSSIBLE SEPTAL MYOCARDIAL INFARCTION , PROBABLY OLD [30 ms Q WAVE IN V1/V2] Compared to ECG 03/10/2025 16:18:05 Electronically Signed On 03-13-2025 23:27:11 CDT by OSMAR MONTERO [email or web address]
[2025-03-10 19:11] VITALS: BP 140/69; PULSE 58; RESP 20; O2SAT 97
[2025-03-10 19:12] LABS: Troponin 5 2HR 16.89 ng/L (0-15)
[2025-03-10 19:17] LABS: Troponin 5 2HR Delta -2.11 ABS# (0-10)
== END 2025-03-10 19:12 | disposition home or self-care (01) ==
PROVIDERS: Emergency Provider Emergency Medicine; PCP Internal Medicine
DX: G93.9 Disorder of brain, unspecified (principal); R47.02 Dysphasia; Z79.01 Long term (current) use of anticoagulants; Z95.5 Presence of coronary angioplasty implant and graft; E78.5 Hyperlipidemia, unspecified; I10 Essential (primary) hypertension; I25.10 Atherosclerotic heart disease of native coronary artery without angina pectoris
CPT/HCPCS: 36415; 70450; 71045; 80053; 81001; 83605; 83880; 84484; 85025; 85610; 85730; 87040; 93005; 96374; 99285; J1100

== ENCOUNTER 2025-03-14 13:15 | Outpatient (CLI) | payer MEDICARE, OTHER, SELFPAY ==
--- NOTE | 2025-03-14 13:30 | USCV_ITS ---
Cristhian Pepe Age: 74 Gender: M : 1950 Exam Date: 03/14/2025 13:35 Ordering Phys: Kendrick Gabirel M.D ([email or web address]) Technologist: Exam Location: [facility] Indication: sob cp BP: 120 / 70 HR: 80 Rhythm: Sinus Technical Quality: MEASUREMENTS (Male / Female) Normal Values 2D ECHO LV Diastolic Diameter PLAX 4.9 cm 4.2 - 5.9 / 3.9 - 5.3 cm IVS Diastolic Thickness 1.3 cm 0.6 - 1.0 / 0.6 - 0.9 cm IVS Systolic Thickness 2.1 cm LVPW Diastolic Thickness 1.4 cm 0.6 - 1.0 / 0.6 - 0.9 cm LVPW Systolic Thickness 1.9 cm LVOT Diameter 1.2 cm LV Ejection Fraction 2D Teich 67.1 % LV Ejection Fraction MOD 4C 59.6 % LV Ejection Fraction MOD 2C 58.3 % LV Ejection Fraction 2C AL 60.2 % RA Systolic Volume 4C AL 48.4 ml RA Systolic Volume 4C MOD 47.2 ml LA Sys Volume AL 50.4 cm cubed LA Sys Volume Index AL 27.2 cm cubed/m squared M-MODE LA Ao Ratio MM 1.3 AV Cusp Separation MM 1.7 cm DOPPLER AV Peak Velocity 229.0 cm/s LVOT Peak Velocity 93.0 cm/s AV Area Cont Eq vti 0.6 cm squared AV Area Cont Eq pk 0.5 cm squared MV Peak Velocity 82.0 cm/s MV Area PHT 3.1 cm squared Mitral E to A Ratio 2.6 TV Peak Velocity 263.5 cm/s TR Peak Velocity 284.0 cm/s TR Peak Gradient 32.3 mmHg TV Peak E Velocity 65.0 cm/s PV Peak Velocity 75.0 cm/s FINDINGS Left Ventricle Normal left ventricular size, systolic function and wall thickness, with no regional wall motion abnormalities. Left ventricular ejection fraction is estimated at 55 %. No regional wall motion abnormalities. Grade II/IV diastolic dysfunction, moderately elevated filling pressures. Right Ventricle Normal right ventricular size and systolic function. Right Atrium Normal right atrial size. Left Atrium Moderately increased left atrial size. IA Septum Normal appearance of the interatrial septum. Mitral Valve Moderately thickened mitral valve. No mitral valve stenosis. There appeared to be subvalvular rudimentary laxed apparatus, moderate mitral valve regurgitation. Aortic Valve Severe aortic valve calcification. Moderate to severe aortic valve stenosis, mean gradient 8.3 mmHg, AMADO 0.57 cm squared. Mild aortic valve regurgitation. Given the discrepancy between mean valvular gradient and aortic valve area transesophageal echocardiogram would be a better modality to assess the severity of the aortic valve or repeat the study Tricuspid Valve Moderate tricuspid valve regurgitation. Pulmonic Valve Trace pulmonary valve regurgitation. Pericardium No pericardial effusion. Aorta Normal diameter of the aortic root and ascending thoracic aorta. IVC Normal IVC diameter. CONCLUSIONS Normal left ventricular size, systolic function and wall thickness, with no regional wall motion abnormalities. Left ventricular ejection fraction is estimated at 55 %. No regional wall motion abnormalities. Grade II/IV diastolic dysfunction, moderately elevated filling pressures. Moderately increased left atrial size. Moderately thickened mitral valve. No mitral valve stenosis. There appeared to be subvalvular rudimentary laxed apparatus, moderate mitral valve regurgitation. Severe aortic valve calcification. Moderate to severe aortic valve stenosis, mean gradient 8.3 mmHg, AMADO 0.57 cm squared. Mild aortic valve regurgitation. Given the discrepancy between mean valvular gradient and aortic valve area transesophageal echocardiogram would be a better modality to assess the severity of the aortic valve or repeat the study There is no pericardial effusion. Right atrial pressure is around 10 mm of mercury. Aries Simms MD (Electronically Signed) Final Date: 24 March 2025 20:09 S
== END 2025-03-14 13:16 | disposition home or self-care (01) ==
LOC: RAD 13:20
PROVIDERS: PCP Internal Medicine; Visit Provider Internal Medicine
DX: Z95.2 Presence of prosthetic heart valve (principal); R93.1 Abnormal findings on diagnostic imaging of heart and coronary circulation; I51.7 Cardiomegaly; I34.0 Nonrheumatic mitral (valve) insufficiency; I35.8 Other nonrheumatic aortic valve disorders; I35.0 Nonrheumatic aortic (valve) stenosis; I35.1 Nonrheumatic aortic (valve) insufficiency; I07.1 Rheumatic tricuspid insufficiency
CPT/HCPCS: 93306